=== PATIENT | female | born 2000 | race Caucasian/White ===

== ENCOUNTER 2020-04-02 19:36 | Inpatient (IN) | payer MEDICAID ==
[2020-04-02] MEDS ORDERED: Carboprost Tromethamine 250 MCG/1 ML Amp IM PRN (20:10)
[2020-04-02] MEDS ORDERED: Nalbuphine 10 MG/1 ML Vial IVPUSH PRN (20:10)
[2020-04-02] MEDS ORDERED: Tranexamic Acid 1,000 MG in Sodium Chloride 0.9% 100 ML IV PRN (20:10)
[2020-04-02] MEDS ORDERED: Lidocaine 1% 50 ML MDV INJECT PRN (20:10)
[2020-04-02] MEDS ORDERED: Methylergonovine 0.2 MG/1 ML Amp IM PRN (20:10)
[2020-04-02] MEDS ORDERED: Ondansetron 4 MG Tab.DIS PO PRN (20:10)
[2020-04-02] MEDS ORDERED: Water For Irrigation,Sterile 1,000 ML Container IRR PRN (20:10)
[2020-04-02] MEDS ORDERED: Ampicillin 2 GM in Sodium Chloride 0.9% 100 ML IV ONE (20:10)
[2020-04-02] MEDS ORDERED: Sodium Chloride 0.9% 10 ML SDV IV PRN (20:10)
[2020-04-02] MEDS ORDERED: Butorphanol 1 MG/ML SDV IVPUSH PRN (20:10)
[2020-04-02] MEDS ORDERED: Sodium Chloride 0.9% 10 ML Syringe FLUSH PRN (20:10)
[2020-04-02] MEDS ORDERED: Misoprostol 200 MCG Tab PO PRN (20:10)
[2020-04-02] MEDS ORDERED: Sodium Chloride 0.9% 2.5 ML Syringe FLUSH PRN (20:10)
[2020-04-02] MEDS ORDERED: Oxytocin/0.9 % Sodium Chloride 30 UNIT/500 ML BAG IV SCH ×2 (20:15→23:15)
[2020-04-02] MEDS ORDERED: Betamethasone Acetate/Betamethasone Sod Phosphate 30 MG/5 ML MDV IM SCH (20:15)
[2020-04-02] MEDS ORDERED: Lactated Ringers 1,000 ML IV SCH (20:15)
--- NOTE | 2020-04-02 20:33 | PCM.LDHP ---
L&D History of Present Illness - General Date of Service: 04/02/20 Admit Problem/Dx: Patient Status Order with Admit Dx/Problem 04/02/20 19:42 Patient Status [ADT] Routine 04/02/20 20:10 Patient Status [ADT] Routine Admission Diagnosis/Problem Admission Diagnosis/Problem 04/02/20 20:27 premature rupture of membranes Source of Information: Patient History Limitations: Reports: No Limitations - History of Present Illness Introduction:: 19 year old at 36w0d (SELVIN 04/30/2020 by LMP c/w 1st trimester US) presents to L&D with premature rupture of membranes which occurred at 1930 this evening. Clear fluid noted. Also has had mild contractions q3-5 minutes apart. Reports good movement. Denies vaginal bleeding or discharge. Of note, had COVID-19 in January 2020. - Related Data Allergies/Adverse Reactions: Allergies Allergy/AdvReac Type Severity Reaction Status Date / Time No Known Allergies Allergy Verified 04/02/20 20:21 H&P Review of Systems - Review of Systems: Review Of Systems: See Below General: Reports: No Symptoms Pulmonary: Reports: No Symptoms Cardiovascular: Reports: No Symptoms Gastrointestinal: Reports: Abdominal Pain (mild) Genitourinary: Reports: No Symptoms Musculoskeletal: Reports: No Symptoms Skin: Reports: No Symptoms Psychiatric: Reports: No Symptoms Neurological: Reports: No Symptoms Hematologic/Lymphatic: Reports: No Symptoms Immunologic: Reports: No Symptoms L&D Exam - Exam Exam: See Below - Vital Signs Weight: 145 lb - OB Specific Contraction Intensity: Mild Movement: Active Heart Tones: Present Heart Tones per Min: 140 Heart Rate (FHR) Variability: Moderate (6-25 bmp) Presentation: Vertex Estimated Weight: 2049g (73rd %ile) on 03/09/2020 - Desai Score Desai Score Cervix Position: Posterior (per nursing staff) Desai Score Effacement: >80% Desai Score Dilation: 1-2 cm Desai Score 's Station: -3 - Exam General: Alert Lungs: Normal Respiratory Effort Cardiovascular: Regular Rate GI/Abdominal Exam: Soft, Non-Tender Rectal Exam: Deferred Extremities: Normal Inspection, Non-Tender, No Pedal Edema Skin: Warm, Dry, Intact Psychiatric: Normal Mood - Patient Data Lab Results Last 24 hrs: Laboratory Results - last 24 hr 04/02/20 Range/Units 19:52 Membrane Rupture POSITIVE Problem List Initiated/Reviewed/Updated: Yes Orders Last 24hrs: Active Orders 24 hr Category Date Time Status Patient Status [ADT] Routine ADT 04/02/20 20:10 Active Heart Tones [RC] CONTINUOUS Care 04/02/20 20:10 Active Non Stress Test [RC] PER UNIT ROUTINE Care 04/02/20 19:42 Active Non Stress Test [RC] PER UNIT ROUTINE Care 04/02/20 20:10 Active May Shower [RC] ASDIRECTED Care 04/02/20 20:10 Active Notify Provider [RC] PRN Care 04/02/20 20:10 Active Up ad Nicole [RC] ASDIRECTED Care 04/02/20 19:42 Active Up ad Nicole [RC] ASDIRECTED Care 04/02/20 20:10 Active Vaginal Exam [RC] Click to Edit Care 04/02/20 19:42 Active Vaginal Exam [RC] PRN Care 04/02/20 20:10 Active Vital Signs [RC] PER UNIT ROUTINE Care 04/02/20 19:42 Active Vital Signs [RC] PER UNIT ROUTINE Care 04/02/20 20:10 Active Clear Liquid Diet [DIET] Diet 04/03/20 Breakfast Active CBC W/O DIFF,HEMOGRAM [HEME] Routine Lab 04/02/20 20:10 Ordered GROUP B STREP BY PCR [MOLEC] Stat Lab 04/02/20 19:52 Received RPR (SYPHILIS SERO) W/ RFLX [REF] Routine Lab 04/02/20 20:10 Ordered TYPE AND SCREEN [BBK] Routine Lab 04/02/20 20:10 Ordered Ampicillin 1 gm Med 04/02/20 20:15 Ordered Sodium Chloride 0.9% [Normal Saline] 50 ml IV Q4H Ampicillin 2 gm Med 04/02/20 20:10 Ordered Sodium Chloride 0.9% [Normal Saline] 100 ml IV ONETIME Betamet Acet/Betamet Na Phos [Celestone Soluspan 6 MG/ Med 04/02/20 20:15 Ordered ML] 12 mg IM Q24H Butorphanol [Stadol] Med 04/02/20 20:10 Ordered 1 mg IVPUSH Q1H PRN Carboprost Tromethamine [Hemabate DS] Med 04/02/20 20:10 Ordered 250 mcg IM ASDIRECTED PRN Lactated Ringers [Ringers, Lactated] 1,000 ml Med 04/02/20 20:15 Ordered IV ASDIRECTED Lidocaine 1% [Xylocaine 1%] Med 04/02/20 20:10 Ordered 50 ml INJECT ONETIME PRN Methylergonovine [Methergine] Med 04/02/20 20:10 Ordered 0.2 mg IM ASDIRECTED PRN Nalbuphine [Nubain] Med 04/02/20 20:10 Ordered 10 mg IVPUSH Q1H PRN Ondansetron [Zofran ODT] Med 04/02/20 20:10 Ordered 4 mg PO Q4H PRN Oxytocin/0.9 % Sodium Chloride [Oxytocin 30 Unit/500 ML Med 04/02/20 20:15 Ordered -NS] 30 unit in 500 ml IV TITRATE Sodium Chloride 0.9% [Normal Saline] Med 04/02/20 20:10 Ordered 10 ml IV ASDIRECTED PRN Sodium Chloride 0.9% [Saline Flush] Med 04/02/20 20:10 Ordered 10 ml FLUSH ASDIRECTED PRN Sodium Chloride 0.9% [Saline Flush] Med 04/02/20 20:10 Ordered 2.5 ml FLUSH ASDIRECTED PRN Tranexamic Acid [Cyklokapron] 1,000 mg Med 04/02/20 20:10 Ordered Sodium Chloride 0.9% [Normal Saline] 100 ml IV ONETIME Water For Irrigation,Sterile [Sterile Water for Med 04/02/20 20:10 Ordered Irrigation] 1,000 ml IRR ASDIRECTED PRN miSOPROStoL [Cytotec] Med 04/02/20 20:10 Ordered 200 mcg PO ONETIME PRN Scalp Electrode [WOMSER] Per Unit Routine Oth 04/02/20 20:10 Ordered Peripheral IV Insertion Adult [OM.PC] Routine Oth 04/02/20 20:10 Ordered Resuscitation Status Routine Resus Stat 04/02/20 20:10 Ordered Medication Orders Betamethasone Acet/Betameth SodPhos (Celestone Soluspan 6 Mg/Ml) 12 mg IM Q24H [facility] Stop: 04/03/20 20:16 Butorphanol Tartrate (Stadol) 1 mg IVPUSH Q1H PRN PRN Reason: Pain Carboprost Tromethamine (Hemabate Ds) 250 mcg IM ASDIRECTED PRN PRN Reason: Post Hemorrhage Lactated Ringer's (Ringers, Lactated) 1,000 mls @ 150 mls/hr IV ASDIRECTED [facility] Oxytocin/Sodium Chloride (Oxytocin 30 Unit/500 Ml-Ns) 30 unit in 500 mls @ 999 mls/hr IV TITRATE [facility] Tranexamic Acid 1,000 mg/ (Sodium Chloride) 110 mls @ 660 mls/hr IV ONETIME PRN PRN Reason: Bleeding Ampicillin Sodium 2 gm/ Sodium (Chloride) 100 mls @ 200 mls/hr IV ONETIME ONE Stop: 04/02/20 20:39 Ampicillin Sodium 1 gm/ Sodium (Chloride) 50 mls @ 100 mls/hr IV Q4H [facility] Lidocaine HCl (Xylocaine 1%) 50 ml INJECT ONETIME PRN PRN Reason: Laceration repair Methylergonovine Maleate (Methergine) 0.2 mg IM ASDIRECTED PRN PRN Reason: Post Hemorrhage Misoprostol (Cytotec) 200 mcg PO ONETIME PRN PRN Reason: Post Hemorrhage Nalbuphine HCl (Nubain) 10 mg IVPUSH Q1H PRN PRN Reason: Pain (severe 7-10) Ondansetron HCl (Zofran Odt) 4 mg PO Q4H PRN PRN Reason: Nausea/Vomiting Sodium Chloride (Saline Flush) 10 ml FLUSH ASDIRECTED PRN PRN Reason: Keep Vein Open Sodium Chloride (Saline Flush) 2.5 ml FLUSH ASDIRECTED PRN PRN Reason: Keep Vein Open Sodium Chloride (Normal Saline) 10 ml IV ASDIRECTED PRN PRN Reason: IV Use Sterile Water (Sterile Water For Irrigation) 1,000 ml IRR ASDIRECTED PRN PRN Reason: delivery Assessment/Plan Comment:: 19 year old at 36w0d (SELVIN 04/30/2020 by LMP c/w 1st trimester US) with PPROM * Admit to L&D, amnisure positive * Rh positive, rubella immune * GBS unknown, IV Ampicillin ordered for prophylaxis * Betamethasone x1 due to prematurity * [place] q2-5 minutes, will augment labor as needed * Epidural PRN pain management Dispo: stable. Expectant management of PPROM and labor.
[2020-04-02] MEDS ORDERED: Terbutaline 1 MG/ML SDV SUBCUT PRN (23:07)
[2020-04-03] MEDS ORDERED: Ampicillin 1 GM Vial ONE ×3 (01:38→01:57)
[2020-04-03] MEDS ORDERED: Sodium Chloride 0.9% 50 ML ONE ×2 (01:53→01:57)
[2020-04-03] MEDS: Ampicillin 1 GM in Sodium Chloride 0.9% 50 ML IV SCH ×2 (02:04→06:01)
[2020-04-03] MEDS ORDERED: Morphine 2 MG/ML SYRINGE ONE (07:58)
[2020-04-03] MEDS ORDERED: Morphine 2 MG/ML SYRINGE IVPUSH ONE (07:58)
[2020-04-03] MEDS ORDERED: Ampicillin 1 GM in Sodium Chloride 0.9% 50 ML IV SCH ×2 (08:00→10:00)
[2020-04-03] MEDS ORDERED: Docusate Sodium 100 MG Cap PO PRN (08:23)
[2020-04-03] MEDS ORDERED: oxyCODONE 5 MG Tab PO PRN (08:23)
[2020-04-03] MEDS ORDERED: Bisacodyl 10 MG Supp RECTAL PRN (08:23)
[2020-04-03] MEDS ORDERED: Ibuprofen 400 MG Tab PO PRN (08:23)
[2020-04-03] MEDS ORDERED: Ibuprofen 800 MG Tab PO PRN (08:23)
[2020-04-03] MEDS ORDERED: Lanolin 100% Cream 7 GM Tube TOP PRN (08:23)
[2020-04-03] MEDS ORDERED: Witch Hazel Medicated Pads 40/Jar TOP PRN (08:23)
[2020-04-03] MEDS ORDERED: Acetaminophen 500 MG Tab PO PRN ×2 (08:23)
[2020-04-03] MEDS ORDERED: Benzocaine/Menthol 20%-0.5% Spray 78 GM Cannister TOP PRN (08:23)
--- NOTE | 2020-04-03 08:30 | PCM.DEL ---
L & D Note - General Info Date of Service: 04/03/20 Mother's Due Date: 04/30/20 - Delivery Note Labor: Augmented by Oxytocin Delivery Outcome: Livebirth Infant Delivery Method: Spontaneous Vaginal Delivery-Single Presentation: Left Occiput Anterior (CLARY) Nuchal Cord: None Anesthesia Type: Local Anesthetic: Lidocaine (Xylocaine) 1% Plain Local Anesthetic Volume: Other (10cc) Amniotic Fluid Description: Clear Episiotomy Type: None Laceration: 1st Degree, Labial (left) Suture type: Vicryl Suture size: 3-0 Placenta: Intact, Spontaneous Cord: 3 Vessels Estimated Blood Loss: 150 Resuscitation Needed: No [place]: Bulb Syringe, Stimulated, [place] Used, Warmer Used Score 1 min: 3 Score 5 min: 9 Delivery Comments (Free Text/Narrative):: Dictation #[id number] - General Info Date of Service: 04/03/20 Admission Dx/Problem (Free Text): Patient Status Order with Admit Dx/Problem 04/02/20 19:42 Patient Status [ADT] Routine 04/02/20 20:10 Patient Status [ADT] Routine Admission Diagnosis/Problem Admission Diagnosis/Problem 04/02/20 20:27 premature rupture of membranes - Patient Data Weight - Most Recent: 145 lb Lab Results Last 24 Hours: Laboratory Results - last 24 hr 04/02/20 04/02/20 04/02/20 Range/Units 19:52 21:10 21:10 WBC 12.07 H (4.0-11.0) K/uL RBC 4.15 L (4.30-5.90) M/uL Hgb 12.1 (12.0-16.0) g/dL Hct 36.4 (36.0-46.0) % MCV 87.7 (80.0-98.0) fL MCH 29.2 (27.0-32.0) pg MCHC 33.2 (31.0-37.0) g/dL RDW Std Deviation 43.8 (28.0-62.0) fl RDW Coeff of Leah 14 (11.0-15.0) % Plt Count 215 (150-400) K/uL MPV 12.40 H (7.40-12.00) fL Nucleated RBC % 0.0 /100WBC Nucleated RBCs # 0 K/uL Membrane Rupture POSITIVE Blood Type O POSITIVE Antibody Screen NEGATIVE Med Orders - Current: Current Medications Betamethasone Acet/Betameth SodPhos (Celestone Soluspan 6 Mg/Ml) 12 mg IM Q24H [facility] Stop: 04/03/20 20:16 Last Admin: 04/02/20 21:19 Dose: 2 ml Documented by: Butorphanol Tartrate (Stadol) 1 mg IVPUSH Q1H PRN PRN Reason: Pain Last Admin: 04/03/20 02:12 Dose: 1 mg Documented by: Carboprost Tromethamine (Hemabate Ds) 250 mcg IM ASDIRECTED PRN PRN Reason: Post Hemorrhage Lactated Ringer's (Ringers, Lactated) 1,000 mls @ 150 mls/hr IV ASDIRECTED [facility] Last Admin: 04/02/20 21:18 Dose: 150 mls/hr Documented by: Oxytocin/Sodium Chloride (Oxytocin 30 Unit/500 Ml-Ns) 30 unit in 500 mls @ 999 mls/hr IV TITRATE REPLACED BY [facility] Last Admin: 04/03/20 07:52 Dose: 500 mls/hr Documented by: Tranexamic Acid 1,000 mg/ (Sodium Chloride) 110 mls @ 660 mls/hr IV ONETIME PRN PRN Reason: Bleeding Oxytocin/Sodium Chloride (Oxytocin 30 Unit/500 Ml-Ns) 30 unit in 500 mls @ 2 mls/hr IV TITRATE REPLACED BY [facility]; Protocol Ampicillin Sodium 1 gm/ Sodium (Chloride) 50 mls @ 100 mls/hr IV Q4H REPLACED BY [facility] Lidocaine HCl (Xylocaine 1%) 50 ml INJECT ONETIME PRN PRN Reason: Laceration repair Last Admin: 04/03/20 08:10 Dose: 50 ml Documented by: Methylergonovine Maleate (Methergine) 0.2 mg IM ASDIRECTED PRN PRN Reason: Post Hemorrhage Misoprostol (Cytotec) 200 mcg PO ONETIME PRN PRN Reason: Post Hemorrhage Nalbuphine HCl (Nubain) 10 mg IVPUSH Q1H PRN PRN Reason: Pain (severe 7-10) Ondansetron HCl (Zofran Odt) 4 mg PO Q4H PRN PRN Reason: Nausea/Vomiting Sodium Chloride (Saline Flush) 10 ml FLUSH ASDIRECTED PRN PRN Reason: Keep Vein Open Sodium Chloride (Saline Flush) 2.5 ml FLUSH ASDIRECTED PRN PRN Reason: Keep Vein Open Sodium Chloride (Normal Saline) 10 ml IV ASDIRECTED PRN PRN Reason: IV Use Sterile Water (Sterile Water For Irrigation) 1,000 ml IRR ASDIRECTED PRN PRN Reason: delivery Terbutaline Sulfate (Brethine) 0.25 mg SUBCUT ASDIRECTED PRN PRN Reason: Tacysystole Discontinued Medications Ampicillin Sodium (Ampicillin) Confirm Administered Dose 1 gm .ROUTE .STK-MED ONE Stop: 04/03/20 01:39 Ampicillin Sodium (Ampicillin) Confirm Administered Dose 1 gm .ROUTE .STK-MED ONE Stop: 04/03/20 01:53 Ampicillin Sodium (Ampicillin) Confirm Administered Dose 1 gm .ROUTE .STK-MED ONE Stop: 04/03/20 01:58 Ampicillin Sodium 2 gm/ Sodium (Chloride) 100 mls @ 200 mls/hr IV ONETIME ONE Stop: 04/02/20 20:39 Last Admin: 04/02/20 21:18 Dose: 200 mls/hr Documented by: Ampicillin Sodium 1 gm/ Sodium (Chloride) 50 mls @ 100 mls/hr IV Q4H REPLACED BY [facility] Last Admin: 04/03/20 06:01 Dose: 100 mls/hr Documented by: Sodium Chloride (Normal Saline) Confirm Administered Dose 50 mls @ as directed .ROUTE .STK-MED ONE Stop: 04/03/20 01:54 Sodium Chloride (Normal Saline) Confirm Administered Dose 50 mls @ as directed .ROUTE .STK-MED ONE Stop: 04/03/20 01:58 Ampicillin Sodium 1 gm/ Sodium (Chloride) 50 mls @ 100 mls/hr IV Q4H REPLACED BY [facility] Morphine Sulfate (Morphine) Confirm Administered Dose 2 mg .ROUTE .STK-MED ONE Stop: 04/03/20 07:59 Last Admin: 04/03/20 08:10 Dose: 2 mg Documented by: - Problem List Review Problem List Initiated/Reviewed/Updated: Yes - My Orders Last 24 Hours: My Active Orders 04/02/20 19:42 Non Stress Test [RC] PER UNIT ROUTINE Up ad Nicole [RC] ASDIRECTED Vital Signs [RC] PER UNIT ROUTINE 04/02/20 19:52 GROUP B STREP BY PCR [MOLEC] Stat 04/02/20 20:10 Patient Status [ADT] Routine May Shower [RC] ASDIRECTED Notify Provider [RC] PRN Up ad Nicole [RC] ASDIRECTED Vital Signs [RC] PER UNIT ROUTINE Butorphanol [Stadol] 1 mg IVPUSH Q1H PRN Carboprost Tromethamine [Hemabate DS] 250 mcg IM ASDIRECTED PRN Lidocaine 1% [Xylocaine 1%] 50 ml INJECT ONETIME PRN Methylergonovine [Methergine] 0.2 mg IM ASDIRECTED PRN Nalbuphine [Nubain] 10 mg IVPUSH Q1H PRN Ondansetron [Zofran ODT] 4 mg PO Q4H PRN Sodium Chloride 0.9% [Normal Saline] 10 ml IV ASDIRECTED PRN Sodium Chloride 0.9% [Saline Flush] 10 ml FLUSH ASDIRECTED PRN Sodium Chloride 0.9% [Saline Flush] 2.5 ml FLUSH ASDIRECTED PRN Tranexamic Acid [Cyklokapron] 1,000 mg Sodium Chloride 0.9% [Normal Saline] 100 ml IV ONETIME Water For Irrigation,Sterile [Sterile Water for Irrigation] 1,000 ml IRR ASDIRECTED PRN miSOPROStoL [Cytotec] 200 mcg PO ONETIME PRN Scalp Electrode [WOMSER] Per Unit Routine Peripheral IV Insertion Adult [OM.PC] Routine Resuscitation Status Routine 04/02/20 20:15 Betamet Acet/Betamet Na Phos [Celestone Soluspan 6 MG/ML] 12 mg IM Q24H Lactated Ringers [Ringers, Lactated] 1,000 ml IV ASDIRECTED Oxytocin/0.9 % Sodium Chloride [Oxytocin 30 Unit/500 ML-NS] 30 unit in 500 ml IV TITRATE 04/02/20 21:10 RPR (SYPHILIS SERO) W/ RFLX [REF] Routine 04/02/20 23:07 Bedrest Bathroom Privileges [RC] ASDIRECTED Communication Order [RC] ASDIRECTED Communication Order [RC] ASDIRECTED Notify Provider [RC] PRN Oxygen Therapy [RC] ASDIRECTED Vaginal Exam [RC] PRN Vital Signs [RC] PER UNIT ROUTINE Terbutaline [Brethine] 0.25 mg SUBCUT ASDIRECTED PRN 04/02/20 23:15 Oxytocin/0.9 % Sodium Chloride [Oxytocin 30 Unit/500 ML-NS] 30 unit in 500 ml IV TITRATE Medication Administration Instruction [OM.PC] Q3H 04/03/20 Breakfast Clear Liquid Diet [DIET] 04/03/20 08:23 Patient Status [ADT] Routine May Shower [RC] ASDIRECTED Up ad Nicole [RC] ASDIRECTED Vital Signs [RC] PER UNIT ROUTINE Acetaminophen [Tylenol Extra Strength] 1,000 mg PO Q4H PRN Acetaminophen [Tylenol Extra Strength] 500 mg PO Q4H PRN Benzocaine/Menthol [Dermoplast Pain Relief 20%-0.5% [place]] 78 gm TOP ASDIRECTED PRN Docusate Sodium [Colace] 100 mg PO BID PRN Ibuprofen [Motrin] 400 mg PO Q4H PRN Ibuprofen [Motrin] 800 mg PO Q6H PRN Lanolin [Lansinoh HPA] See Dose Instructions TOP ASDIRECTED PRN bisacodyL [Dulcolax] 10 mg RECTAL ONETIME PRN oxyCODONE 5 mg PO Q2H PRN witch Laura [Tucks] 1 pad TOP ASDIRECTED PRN Assess Lochia [WOMSER] Per Unit Routine Assess Uterine Involution [WOMSER] Per Unit Routine Peripheral IV Discontinue [OM.PC] Routine 04/03/20 10:00 Ampicillin 1 gm Sodium Chloride 0.9% [Normal Saline] 50 ml IV Q4H 04/04/20 05:11 HEMOGLOBIN/HEMATOCRIT,HH [HEME] Timed - Assessment Assessment:: 19 year old G2 now P0111 s/p at 36w1d due to PPROM - Plan Plan:: Routine cares * Rh positive, rubella immune * GBS unknown, GBS unknown. s/p 3 doses of IV prophylaxis * Regular diet as tolerated * PO medications ordered PRN pain * Encourage ambulation and fluid intake when able * Bottlefeeding Dispo: stable. Anticipate routine course
--- NOTE | 2020-04-03 13:42 | OR ---
SURGEON: MEMO MELÉNDEZ MD DATE OF PROCEDURE: 04/03/2020 PREOPERATIVE DIAGNOSES: 1. intrauterine at 36 weeks and 1 day. 2. Premature rupture of membranes. POSTOPERATIVE DIAGNOSES: 1. intrauterine at 36 weeks and 1 day. 2. Premature rupture of membranes. PROCEDURE: Spontaneous vaginal delivery. PRIMARY SURGEON: Memo Meléndez MD ANESTHESIA: Local anesthetic with 1% lidocaine. COMPLICATIONS: None. ESTIMATED BLOOD LOSS: 150 mL. INDICATIONS: A 19-year-old, 2, para 0-0-1-0, at 36-1/7 weeks' gestation, who presented to Labor and Delivery on the evening of 04/02/2020 with premature rupture of membranes and contractions. DESCRIPTION OF PROCEDURE: The patient was admitted to Labor and Delivery on 04/02/2020 for rupture of membranes with clear fluid noted and contractions every 2 to 5 minutes. Due to prematurity, betamethasone injection was given. GBS status was unknown at the time of admission. Vaginal/rectal swab obtained and IV ampicillin was initiated for prophylaxis. The patient allowed to labor for a few hours, however, no cervical changes noted and at approximately 2300 on 04/02/2020 Pitocin was started. Labor progressed spontaneously, and the patient labored without epidural pain medication. I was notified at approximately 0730 on the morning of 04/03/2020 that the patient was completely dilated and 1+ station with desire to push. Upon my arrival to the patient's room, she initiated pushing efforts. With good pushing efforts, a viable male was delivered at 0751. Nose and mouth were suctioned with bulb and cord clamped and cut. The infant was handed off to awaiting nursing staff and Dr. Fisher, the forest and conservation worker, who evaluated the under the warmer. score of 3 and 9. Arterial, venous and umbilical cord blood gases were obtained. The placenta then delivered spontaneously and intact. A 3-vessel cord was noted. Upon inspection of the perineum a first-degree perineal laceration and a left labial laceration were noted. Approximately 10 mL of local anesthetic was injected into the area of lacerations. The first-degree perineal laceration was repaired with 2-0 Vicryl in the normal fashion and the left labial laceration was repaired with 3-0 Vicryl in the normal fashion. Hemostasis was noted. Sponge, lap, and needle counts were correct x2. Mother and recovering in stable condition in room at this time. MELANY / TANIA /[id number] MTDD
--- NOTE | 2020-04-04 10:37 | PCM.PNPP ---
- General Info Date of Service: 04/04/20 Functional Status: Reports: Pain Controlled, Tolerating Diet, Ambulating, Urinating - Review of Systems General: Reports: Fatigue. Denies: Fever, Weakness Pulmonary: Denies: Shortness of Breath Cardiovascular: Denies: Chest Pain, Palpitations, Lightheadedness Gastrointestinal: Denies: Abdominal Pain, Nausea, Vomiting Genitourinary: Reports: No Symptoms Musculoskeletal: Reports: No Symptoms Skin: Reports: No Symptoms Neurological: Reports: No Symptoms Psychiatric: Reports: No Symptoms - General Info Date of Service: 04/04/20 - Patient Data Vital Signs - Most Recent: Last Vital Signs Temp 36.5 C 04/04/20 04:50 Pulse 66 04/04/20 04:50 Resp 16 04/04/20 04:50 BP 112/64 04/04/20 04:50 Pulse Ox 97 04/04/20 04:50 Weight - Most Recent: 65.771 kg Lab Results - Last 24 Hours: Laboratory Results - last 24 hr 04/02/20 04/04/20 Range/Units 19:52 05:22 Hgb 10.9 L (12.0-16.0) g/dL Hct 34.0 L (36.0-46.0) % Group B Strep (PCR) NEGATIVE (NEGATIVE) Med Orders - Current: Current Medications Acetaminophen (Tylenol Extra Strength) 500 mg PO Q4H PRN PRN Reason: Pain Acetaminophen (Tylenol Extra Strength) 1,000 mg PO Q4H PRN PRN Reason: Pain Benzocaine/Menthol (Dermoplast Pain Relief 20%-0.5% [place]) 78 gm TOP ASDIRECTED PRN PRN Reason: Perineal Comfort Measure Bisacodyl (Dulcolax) 10 mg RECTAL ONETIME PRN PRN Reason: Constipation Butorphanol Tartrate (Stadol) 1 mg IVPUSH Q1H PRN PRN Reason: Pain Last Admin: 04/03/20 02:12 Dose: 1 mg Documented by: Carboprost Tromethamine (Hemabate Ds) 250 mcg IM ASDIRECTED PRN PRN Reason: Post Hemorrhage Docusate Sodium (Colace) 100 mg PO BID PRN PRN Reason: Constipation Emollient Ointment (Lansinoh Hpa) 0 gm TOP ASDIRECTED PRN PRN Reason: Sore Nipples Lactated Ringer's (Ringers, Lactated) 1,000 mls @ 150 mls/hr IV ASDIRECTED [facility] Last Admin: 04/02/20 21:18 Dose: 150 mls/hr Documented by: Oxytocin/Sodium Chloride (Oxytocin 30 Unit/500 Ml-Ns) 30 unit in 500 mls @ 999 mls/hr IV TITRATE [facility] Last Admin: 04/03/20 07:52 Dose: 500 mls/hr Documented by: Tranexamic Acid 1,000 mg/ (Sodium Chloride) 110 mls @ 660 mls/hr IV ONETIME PRN PRN Reason: Bleeding Oxytocin/Sodium Chloride (Oxytocin 30 Unit/500 Ml-Ns) 30 unit in 500 mls @ 2 mls/hr IV TITRATE [facility]; Protocol Ibuprofen (Motrin) 400 mg PO Q4H PRN PRN Reason: Pain Ibuprofen (Motrin) 800 mg PO Q6H PRN PRN Reason: Pain Lidocaine HCl (Xylocaine 1%) 50 ml INJECT ONETIME PRN PRN Reason: Laceration repair Last Admin: 04/03/20 08:10 Dose: 50 ml Documented by: Methylergonovine Maleate (Methergine) 0.2 mg IM ASDIRECTED PRN PRN Reason: Post Hemorrhage Misoprostol (Cytotec) 200 mcg PO ONETIME PRN PRN Reason: Post Hemorrhage Nalbuphine HCl (Nubain) 10 mg IVPUSH Q1H PRN PRN Reason: Pain (severe 7-10) Ondansetron HCl (Zofran Odt) 4 mg PO Q4H PRN PRN Reason: Nausea/Vomiting Oxycodone HCl (Oxycodone) 5 mg PO Q2H PRN PRN Reason: Pain Sodium Chloride (Saline Flush) 10 ml FLUSH ASDIRECTED PRN PRN Reason: Keep Vein Open Sodium Chloride (Saline Flush) 2.5 ml FLUSH ASDIRECTED PRN PRN Reason: Keep Vein Open Sodium Chloride (Normal Saline) 10 ml IV ASDIRECTED PRN PRN Reason: IV Use Sterile Water (Sterile Water For Irrigation) 1,000 ml IRR ASDIRECTED PRN PRN Reason: delivery Terbutaline Sulfate (Brethine) 0.25 mg SUBCUT ASDIRECTED PRN PRN Reason: Tacysystole Witch Angela (Tucks) 1 pad TOP ASDIRECTED PRN PRN Reason: comfort care Last Admin: 04/03/20 10:00 Dose: 1 canister Documented by: Discontinued Medications Ampicillin Sodium (Ampicillin) Confirm Administered Dose 1 gm .ROUTE .STK-MED ONE Stop: 04/03/20 01:39 Ampicillin Sodium (Ampicillin) Confirm Administered Dose 1 gm .ROUTE .STK-MED ONE Stop: 04/03/20 01:53 Ampicillin Sodium (Ampicillin) Confirm Administered Dose 1 gm .ROUTE .STK-MED ONE Stop: 04/03/20 01:58 Betamethasone Acet/Betameth SodPhos (Celestone Soluspan 6 Mg/Ml) 12 mg IM Q24H [facility] Stop: 04/03/20 20:16 Last Admin: 04/02/20 21:19 Dose: 2 ml Documented by: Ampicillin Sodium 2 gm/ Sodium (Chloride) 100 mls @ 200 mls/hr IV ONETIME ONE Stop: 04/02/20 20:39 Last Admin: 04/02/20 21:18 Dose: 200 mls/hr Documented by: Ampicillin Sodium 1 gm/ Sodium (Chloride) 50 mls @ 100 mls/hr IV Q4H [facility] Last Admin: 04/03/20 06:01 Dose: 100 mls/hr Documented by: Sodium Chloride (Normal Saline) Confirm Administered Dose 50 mls @ as directed .ROUTE .STK-MED ONE Stop: 04/03/20 01:54 Sodium Chloride (Normal Saline) Confirm Administered Dose 50 mls @ as directed .ROUTE .STK-MED ONE Stop: 04/03/20 01:58 Ampicillin Sodium 1 gm/ Sodium (Chloride) 50 mls @ 100 mls/hr IV Q4H [facility] Ampicillin Sodium 1 gm/ Sodium (Chloride) 50 mls @ 100 mls/hr IV Q4H [facility] Morphine Sulfate (Morphine) Confirm Administered Dose 2 mg .ROUTE .STK-MED ONE Stop: 04/03/20 07:59 Last Admin: 04/03/20 08:10 Dose: 2 mg Documented by: - Infant Interaction Support Person: Significant Other - Recovery Exam Fundal Tone: Firm Fundal Level: At Umbilicus Fundal Placement: Midline Lochia Amount: Scant Lochia Color: Rubra/Red Episiotomy/Laceration: Approximated Bladder Status: Voiding Urinary Elimination: Voided - Exam General: Alert, Oriented Lungs: Normal Respiratory Effort Cardiovascular: Regular Rate, Regular Rhythm GI/Abdominal Exam: Soft, Non-Tender Extremities: Pedal Edema (trace). No: Gissell's Sign Skin: Warm, Dry, Intact Neurological: No New Focal Deficit Psy/Mental Status: Alert, Normal Affect, Normal Mood - Problem List & Annotations (1) Vaginal delivery SNOMED Code(s): 378159682 Code(s): O80 - ENCOUNTER FOR FULL-TERM UNCOMPLICATED DELIVERY Status: Acute Current Visit: Yes - Problem List Review Problem List Initiated/Reviewed/Updated: Yes - My Orders Last 24 Hours: My Active Orders 04/04/20 Breakfast Regular Diet [DIET] - Assessment Assessment:: 19 year old G2 now P0111 PPD1 s/p at 36w1d due to PPROM - Plan Plan:: Routine cares * Rh positive, rubella immune * Regular diet as tolerated * PO medications ordered PRN pain * Encourage ambulation and fluid intake when able * Bottlefeeding Continue PP cares. Labs and VS are stable. GBBS negative. Await discharge of baby, which will probably be tomorrow.
== END 2020-04-04 17:00 | disposition home or self-care (01) | DRG 807 ==
LOC: MW.OBCHECK 19:36 → MW.OB 19:37 → MW.OBCHECK 20:10 → MW.OB 20:10 → OBSVTOIN 04-03 07:51 → MW.OB 04-03 10:42
PROVIDERS: ADMIT Obstetrics & Gynecology; ATTEND Obstetrics & Gynecology
PROC: 10E0XZZ Delivery of Products of Conception, External Approach (ICD-10-PCS; principal; 2020-04-03)
PROC: 3E0R3BZ Introduction of Anesthetic Agent into Spinal Canal, Percutaneous Approach (ICD-10-PCS; 2020-04-03)
PROC: 4A1HXCZ Monitoring of Products of Conception, Cardiac Rate, External Approach (ICD-10-PCS; 2020-04-03)
DX: O60.14X0 Preterm labor third trimester with preterm delivery third trimester, not applicable or unspecified (principal); Z37.0 Single live birth; Z3A.36 36 weeks gestation of pregnancy; Z20.828 Contact with and (suspected) exposure to other viral communicable diseases
CPT/HCPCS: 36415; 59025; 59409; 84112; 85014; 85018; 85027; 86592; 86850; 86900; 86901; 87653; A9270-GY; J0290; J0595; J0702; J2001; J2270; J2590; J7050; J7120

== ENCOUNTER 2020-04-19 23:47 | Emergency (ER) | payer MEDICAID ==
[2020-04-20] MEDS ORDERED: Ketorolac 30 MG/ML SDV IVPUSH ONE (00:13)
[2020-04-20] MEDS ORDERED: Acetaminophen 500 MG Tab PO ONE (00:13)
[2020-04-20] MEDS ORDERED: Sodium Chloride 0.9% 1,000 ML IV ONE ×2 (00:13→01:35)
[2020-04-20] MEDS ORDERED: Sodium Chloride 0.9% 10 ML Syringe FLUSH PRN (00:13)
[2020-04-20] MEDS ORDERED: Sodium Chloride 0.9% 2.5 ML Syringe FLUSH PRN (00:13)
[2020-04-20 01:11] LABS: BLOOD UREA NITROGEN,BUN 9 mg/dL (7.0-18.0); CARBON DIOXIDE,CO2 20.2 mmol/L (21.0-32.0); CHLORIDE,CL 100 mmol/L (98-107); GLUCOSE RANDOM 149 mg/dL (74-106); POTASSIUM,K 3.5 mmol/L (3.5-5.1); SODIUM,NA 135 mmol/L (136-145)
[2020-04-20 01:29] LABS: CORONAVIRUS COVID-19 NAA NEGATIVE (NEGATIVE); INFLUENZA A NAA NEGATIVE (NEGATIVE); INFLUENZA B NAA NEGATIVE (NEGATIVE)
--- NOTE | 2020-04-20 02:25 | CR ---
INDICATION: Shortness of breath TECHNIQUE: Chest radiograph 1 view COMPARISON: None FINDINGS: Mediastinum: The mediastinum is normal in appearance. The heart silhouette is normal in size and morphology. Lung: Both lungs are unremarkable in appearance. No sign of pleural effusion seen. No pneumothorax is identified. Bone and Soft tissue: Unremarkable for age. IMPRESSION: 1. No acute cardiopulmonary disease is seen. Dictated by: Torrey Simon MD @ 04/20/2020 02:23:02 (Electronically Signed)
--- NOTE | 2020-04-20 02:50 | EDM.PDOC ---
ED HPI GENERAL MEDICAL PROBLEM - General Chief Complaint: General Stated Complaint: DIZZY, LIGHTHEADED Time Seen by Provider: 04/19/20 23:57 - History of Present Illness INITIAL COMMENTS - FREE TEXT/NARRATIVE: HISTORY AND PHYSICAL: History of present illness: Is a 19-year-old female who presents ER today secondary to fever 102, dizziness and headache x1 day. Patient reports she recently delivered 2 weeks ago and has had no complications after the delivery. Patient reports no vaginal bleeding or vaginal discharge at this time. Patient reports no abdominal pain or discomfort. Patient reports that she was diagnosed with coronavirus a couple months ago. Patient denies any history of hypertension, diabetes, liver, lung, kidney problems. Patient denies any abdominal or chest surgeries in the past. Patient has no known drug allergies. Patient denies any tobacco alcohol or drugs. Patient reports no URI symptoms, no cough, no sore throat, no ear pain, no chest pain, no shortness of breath, no abdominal pain, no dysuria, no frequency, no urgency, no hematuria, no nausea, no vomiting, no diarrhea, no rash, no photophobia, no nuchal rigidity. Patient reports her symptoms are isolated to dizziness, fever, and a headache which she reports is not the worst in her life. Review of systems: As per history of present illness and below otherwise all systems reviewed and negative. Past medical history: As per history of present illness and as reviewed below otherwise noncontributory. Surgical history: As per history of present illness and as reviewed below otherwise noncontributory. Social history: No reported history of drug or alcohol abuse. Family history: As per history of present illness and as reviewed below otherwise noncontributory. Physical exam: Constitutional: Patient is oriented to person, place, and time. Appears well- developed and well-nourished. No distress. HEENT: Dry mucous membranes, neck supple, no nuchal rigidity, no photophobia, no Kernig's sign or Brudzinski sign, patient does not present with signs or symptoms of be consistent with meningitis. Tympanic membranes pearly heath with no bulging or erythema. Oropharynx clear without any exudates or erythema, no rash identified throughout her body. Head: Normocephalic and atraumatic Eyes: Right eye exhibits no discharge. Left eye exhibits no discharge. No scleral icterus Neck: Normal range of motion. No tracheal deviation present. Cardiovascular: Normal rate and regular rhythm. Tachycardic 115. No murmurs gallops or rubs. Pulmonary: Effort normal, no respiratory distress. No wheezing rales or rhonch i Abd: Soft, nondistended, no rebound/guarding, no psoas or obturator signs, no tenderness at Mcberney's point, no Langley's sign. Pt does not present with an exam that would be consistent with an acute surgical abdomen at this time Musculoskeletal: Normal range of motion no joint tenderness or discomfort or swelling Neurologic: Alert and oriented to person, place and time. Skin: [place], warm and dry. No rash. Psychiatric: Normal mood and affect. Behavior is normal. Judgment and thought content normal. Nursing note and vital signs have been reviewed This patient was seen and evaluated during the 2019 SARS-CoV-2 novel coronavirus pandemic period. Community viral transmission is ongoing at time of this encounter and the emergency department is operating under pandemic response procedures. Diagnostics: Chest Xray: Normal cardiac silhouette No infiltrates or effusions identified. No PTX No evidence of acute bony fracture. As interpreted by ER MD: Valdemar CBC, CMP unremarkable Covid, influenza A, influenza B all negative. Urinalysis is without evidence of any significant UTI. Patient is asymptomatic from a urinary standpoint. Therapeutics: Acetaminophen, Toradol, NSS x2 L Assessment and plan: This is a 19-year-old female who presents ER today with a febrile illness of unclear etiology. Patient's work-up is unremarkable. Patient is nontoxic- appearing. Patient has received 2 L of NSS, Toradol and Tylenol and reports that she feels much improved. Patient is ambulating in the ED without any dizziness and reports that she feels much better and would like to go home at this time. Patient does not present with any signs or symptoms of be concerning with complications of childbirth. Patient's abdomen is benign without any vaginal bleeding or discharge. Endometrial-itis is extremely low on my differential diagnosis at this time. Patient is not present with any signs or symptoms that would be highly concerning for meningitis. At this time I feel comfortable sending the patient home per her request and will have her follow-up with her primary care physician in the next few days if she is not improving she is to return to the ED. Patient has been instructed take ibuprofen and Tylenol to assist with her fever and to continue pushing fluids. Reassessment at the time of disposition demonstrates that the patient is in no acute distress. The patient has remained stable throughout the entire ED visit and is without objective evidence for acute process requiring urgent intervention or hospitalization. The patient is stable for discharge, counseling is provided as documented above, discussed symptomatic treatment and specific conditions for return. I have spoken with the patient/caregiver and discussed todays findings, in addition to providing specific details for the plan of care. Questions are answered and there is agreement with the plan. Definitive disposition and diagnosis as appropriate pending reevaluation and review of above. April 21, 2020 8:47 PM: Phone call follow-up performed to assure continuity of care. Patient reports that she is feeling much better and has no complaints at this time. headache Pain Score (Numeric/FACES): 7 - Related Data Allergies Allergy/AdvReac Type Severity Reaction Status Date / Time No Known Allergies Allergy Verified 04/19/20 23:55 Home Meds: Home Meds Ibuprofen 600 mg PO Q6HR PRN #30 tablet 04/20/20 [Rx] Past Medical History - Past Health History Medical/Surgical History: Denies Medical/Surgical History TIRE BUSTER History: Reports: , Spontaneous - Infectious Disease History Infectious Disease History: Reports: Novel Coronavirus Social & Family History - Family History Family Medical History: No Pertinent Family History - Tobacco Use Tobacco Use Status *Q: Never Tobacco User - Caffeine Use Caffeine Use: Reports: None - Recreational Drug Use Recreational Drug Use: No ED ROS GENERAL - Review of Systems Review Of Systems: See Below ED EXAM, GENERAL - Physical Exam Exam: See Below Course - Vital Signs Last Recorded V/S: Last Vital Signs Temp 98.6 F 04/20/20 03:04 Pulse 97 04/20/20 03:04 Resp 20 04/20/20 03:04 BP 116/70 04/20/20 03:04 Pulse Ox 99 04/20/20 03:04 - Orders/Labs/Meds Labs: Laboratory Tests 04/20/20 04/20/20 04/20/20 Range/Units 00:30 00:35 00:35 WBC 7.52 (4.0-11.0) K/uL RBC 4.11 L (4.30-5.90) M/uL Hgb 11.9 L (12.0-16.0) g/dL Hct 35.7 L (36.0-46.0) % MCV 86.9 (80.0-98.0) fL MCH 29.0 (27.0-32.0) pg MCHC 33.3 (31.0-37.0) g/dL RDW Std Deviation 40.5 (28.0-62.0) fl RDW Coeff of Leah 13 (11.0-15.0) % Plt Count 187 (150-400) K/uL MPV 10.50 (7.40-12.00) fL Neut % (Auto) 87.0 H (48.0-80.0) % Lymph % (Auto) 8.0 L (16.0-40.0) % [place] % (Auto) 4.9 (0.0-15.0) % Eos % (Auto) 0.0 (0.0-7.0) % Baso % (Auto) 0.1 (0.0-1.5) % Neut # (Auto) 6.5 H (1.4-5.7) K/uL Lymph # (Auto) 0.6 (0.6-2.4) K/uL [place] # (Auto) 0.4 (0.0-0.8) K/uL Eos # (Auto) 0.0 (0.0-0.7) K/uL Baso # (Auto) 0.0 (0.0-0.1) K/uL Sodium 135 L (136-145) mmol/L Potassium 3.5 (3.5-5.1) mmol/L Chloride 100 (98-107) mmol/L Carbon Dioxide 20.2 L (21.0-32.0) mmol/L BUN 9 (7.0-18.0) mg/dL Creatinine 1.1 H (0.6-1.0) mg/dL Est Cr Clr Drug Dosing 61.05 mL/min Estimated GFR (MDRD) > 60.0 ml/min Glucose 149 H (74-106) mg/dL Calcium 8.6 (8.5-10.1) mg/dL Total Bilirubin 0.4 (0.2-1.0) mg/dL AST 29 (15-37) IU/L ALT 31 (14-63) IU/L Alkaline Phosphatase 116 (46-116) U/L Total Protein 7.3 (6.4-8.2) g/dL Albumin 3.1 L (3.4-5.0) g/dL Globulin 4.3 H (2.6-4.0) g/dL Albumin/Globulin Ratio 0.7 L (0.9-1.6) Urine Color Urine Appearance Urine pH (5.0-8.0) Ur Specific Uriah (1.001-1.035) Urine Protein (NEGATIVE) mg/dL Urine Glucose (UA) (NEGATIVE) mg/dL Urine Ketones (NEGATIVE) mg/dL Urine Occult Blood (NEGATIVE) Urine Nitrite (NEGATIVE) Urine Bilirubin (NEGATIVE) Urine Urobilinogen (<2.0) EU/dL Ur Leukocyte Esterase (NEGATIVE) Urine RBC (0-2/HPF) Urine WBC (0-5/HPF) Ur Epithelial Cells (NONE-FEW) Urine Bacteria (NEGATIVE) Urine Mucus (NONE-MOD) Urine HCG, Qual (NEGATIVE) Influenza Type A RNA NEGATIVE (NEGATIVE) Influenza Type B RNA NEGATIVE (NEGATIVE) SARS-CoV-2 RNA (MARILUZ) NEGATIVE (NEGATIVE) 04/20/20 04/20/20 Range/Units 01:42 01:42 WBC (4.0-11.0) K/uL RBC (4.30-5.90) M/uL Hgb (12.0-16.0) g/dL Hct (36.0-46.0) % MCV (80.0-98.0) fL MCH (27.0-32.0) pg MCHC (31.0-37.0) g/dL RDW Std Deviation (28.0-62.0) fl RDW Coeff of Leah (11.0-15.0) % Plt Count (150-400) K/uL MPV (7.40-12.00) fL Neut % (Auto) (48.0-80.0) % Lymph % (Auto) (16.0-40.0) % [place] % (Auto) (0.0-15.0) % Eos % (Auto) (0.0-7.0) % Baso % (Auto) (0.0-1.5) % Neut # (Auto) (1.4-5.7) K/uL Lymph # (Auto) (0.6-2.4) K/uL [place] # (Auto) (0.0-0.8) K/uL Eos # (Auto) (0.0-0.7) K/uL Baso # (Auto) (0.0-0.1) K/uL Sodium (136-145) mmol/L Potassium (3.5-5.1) mmol/L Chloride (98-107) mmol/L Carbon Dioxide (21.0-32.0) mmol/L BUN (7.0-18.0) mg/dL Creatinine (0.6-1.0) mg/dL Est Cr Clr Drug Dosing mL/min Estimated GFR (MDRD) ml/min Glucose (74-106) mg/dL Calcium (8.5-10.1) mg/dL Total Bilirubin (0.2-1.0) mg/dL AST (15-37) IU/L ALT (14-63) IU/L Alkaline Phosphatase (46-116) U/L Total Protein (6.4-8.2) g/dL Albumin (3.4-5.0) g/dL Globulin (2.6-4.0) g/dL Albumin/Globulin Ratio (0.9-1.6) Urine Color YELLOW Urine Appearance CLEAR Urine pH 5.5 (5.0-8.0) Ur Specific Uriah 1.010 (1.001-1.035) Urine Protein TRACE H (NEGATIVE) mg/dL Urine Glucose (UA) NEGATIVE (NEGATIVE) mg/dL Urine Ketones NEGATIVE (NEGATIVE) mg/dL Urine Occult Blood LARGE H (NEGATIVE) Urine Nitrite NEGATIVE (NEGATIVE) Urine Bilirubin NEGATIVE (NEGATIVE) Urine Urobilinogen 0.2 (<2.0) EU/dL Ur Leukocyte Esterase MODERATE H (NEGATIVE) Urine RBC 0-2 (0-2/HPF) Urine WBC 2-5 (0-5/HPF) Ur Epithelial Cells OCCASIONAL (NONE-FEW) Urine Bacteria FEW (NEGATIVE) Urine Mucus LIGHT (NONE-MOD) Urine HCG, Qual NEGATIVE (NEGATIVE) Influenza Type A RNA (NEGATIVE) Influenza Type B RNA (NEGATIVE) SARS-CoV-2 RNA (MARILUZ) (NEGATIVE) Meds: Medications Discontinued Medications Generic Name Dose Route Start Last Admin Trade Name Freq PRN Reason Stop Dose Admin Acetaminophen 1,000 mg 04/20/20 00:13 04/20/20 00:37 Tylenol Extra Strength PO 04/20/20 00:14 1,000 mg ONETIME ONE Administration Sodium Chloride 1,000 mls @ 999 mls/hr 04/20/20 00:13 04/20/20 00:36 Normal Saline IV 04/20/20 01:13 999 mls/hr .Bolus ONE Administration Sodium Chloride 1,000 mls @ 999 mls/hr 04/20/20 01:35 04/20/20 02:05 Normal Saline IV 04/20/20 02:35 999 mls/hr .Bolus ONE Administration Ketorolac Tromethamine 30 mg 04/20/20 00:13 04/20/20 02:22 Toradol IVPUSH 04/20/20 00:14 Not Given ONETIME ONE Sodium Chloride 10 ml 04/20/20 00:13 Saline Flush FLUSH ASDIRECTED PRN Keep Vein Open Sodium Chloride 2.5 ml 04/20/20 00:13 Saline Flush FLUSH ASDIRECTED PRN Keep Vein Open Departure - Departure Time of Disposition: 02:50 Disposition: Home, Self-Care 01 Condition: Good Clinical Impression: Fever, Viral illness, Dehydration - Discharge Information Prescriptions: Ibuprofen 600 mg PO Q6HR PRN #30 tablet PRN Reason: Pain Instructions: Viral Illness, Adult, Fever, Adult, [id number], Dehydration, Adult Referrals: PCP,None [Primary Care Provider] - Forms: ED Department Discharge Additional Instructions: Your seen and evaluated in the ER today secondary to your fever and dehydration. You have been given 2 L of normal saline solution here in the ER as well as medication to help break your temperature. Your fever was 103 here upon arrival. Please take ibuprofen 600 mg every 6 hours keep your fever under control. You can also take acetaminophen 500 mg every 6 hours as well to assist with fever and headaches. Please make an appointment to see your family doctor the next 1 to 2 days for reevaluation. Return to the ER if you have any new or concerning symptoms. The following information is given to patients seen in the emergency department who are being discharged to home. This information is to outline your options for follow-up care. We provide all patients seen in our emergency department with a follow-up referral. The need for follow-up, as well as the timing and circumstances, are variable depending upon the specifics of your emergency department visit. If you don't have a primary care physician on staff, we will provide you with a referral. We always advise you to contact your personal physician following an emergency department visit to inform them of the circumstance of the visit and for follow-up with them and/or the need for any referrals to a consulting specialist. The emergency department will also refer you to a specialist when appropriate. This referral assures that you have the opportunity for follow-up care with a specialist. All of these measure are taken in an effort to provide you with optimal care, which includes your follow-up. Under all circumstances we always encourage you to contact your private physician who remains a resource for coordinating your care. When calling for follow-up care, please make the office aware that this follow-up is from your recent emergency room visit. If for any reason you are refused follow-up, please contact the [facility] Emergency Department at and asked to speak to the emergency department charge nurse. [facility] [address] [place] [id number] [facility] [address] [place] [id number] Sepsis Event Note (ED) - Evaluation Sepsis Screening Result: Possible Sepsis Risk
== END 2020-04-20 03:04 | disposition home or self-care (01) ==
LOC: MW.ED 23:47
DX: E86.0 Dehydration (principal); B34.9 Viral infection, unspecified; Z20.828 Contact with and (suspected) exposure to other viral communicable diseases
CPT/HCPCS: 0240U; 36415; 71045; 80053; 81001; 81025; 85025; 99284; A9270; J7030; 99283